=== PATIENT | female | born 1985 | race Caucasian/White ===

== ENCOUNTER 2018-06-12 12:21 | Emergency (ER) | payer OTHER ==
[2018-06-12 12:34] VITALS: BP 113/77
--- NOTE | 2018-06-12 13:45 | UC ---
Ear Complaint HPI - HPI Summary HPI Summary: 32 y/o female presents to the urgent care c/o Rt ear pressure and decrease hearing for the past 9 months. Pt reports she applied a silver of garlic about 9 months ago in her Rt ear. Since then she feels intermittent pressure. However for the past week she feels decrease hearing and a popping sound. seh is concern if some garlic still there. Pain is dull about 2/10. She has applied saline drops to alleviate symptoms w/o any improvement. Pt denies fever, dizziness, tinnitus, SOB, chest pain, abdominal pain, N/V/D. - History of Current Complaint Chief Complaint: UCEar Stated Complaint: EAR COMPLAINT Time Seen by Provider: 06/12/18 13:25 Hx Obtained From: Patient ?: Yes - 38 weeks Onset/Duration: Gradual Onset, Lasting Weeks - 9 months Severity Initially: Mild Severity Currently: Moderate Pain Intensity: 2 - ear pain pressure Pain Scale Used: 0-10 Numeric Aggravating Factors: Nothing Alleviating Factors: Nothing Associated Signs/Symptoms: Positive: Hearing Loss, Foreign Body Sensation - Allergies/Home Medications Allergies/Adverse Reactions: Allergies Allergy/AdvReac Type Severity Reaction Status Date / Time Sulfa (Sulfonamide Allergy Anaphylatic Verified 06/12/18 12:26 Antibiotics) Shock Home Medications: Home Medications Iron 18 mg PO DAILY 06/12/18 [History Confirmed 06/12/18] Vitamin TAB* 1 tab PO DAILY 06/12/18 [History Confirmed 06/12/18] PMH/Surg Hx/FS Hx/Imm Hx Previously Healthy: Yes Neurological History: Migraine - Surgical History Surgical History: None - Family History Known Family History: Positive: Hypertension, Diabetes Family History: Factor V laden - Social History Occupation: Employed Full-time Lives: With Family Alcohol Use: None Substance Use Type: None Smoking Status (MU): Never Smoked Tobacco Review of Systems Constitutional: Negative Skin: Negative Eyes: Negative ENT: Ear Ache - Rt ear pain and fullness w/ decrease hearing Respiratory: Negative Cardiovascular: Negative Gastrointestinal: Negative Genitourinary: Negative Motor: Negative Neurovascular: Negative Musculoskeletal: Negative Neurological: Negative Psychological: Negative Is Patient Immunocompromised?: No All Other Systems Reviewed And Are Negative: Yes Physical Exam - Summary Physical Exam Summary: Vital signs: reviewed General: well developed, well nourished female sitting in the examining table w/o any apparent distress Skin: [place], warm and dry, no evidence of atopic dermatitis, psoriasis, seborrhea. HEENT: -Head: atraumatic, non tender; no scalp dermatitis. -Eyes: sclera and conjunctiva clear, PERRLA, EOMI -Ears: no pre- or postauricular lymphadenopathy or erythema; RT external ear canal impacted w/ cerumen unable to visualize TM. LF external ear canal clear and LF TM WNL. TMs normal w/out bulging or retraction. Good light reflex. No fluid level, vesicles, or bullae. No perforation. -Nose/Face: erythematous and edematous nasal mucosa with clear rhinorrhea, no frontal or maxillary sinus tender to palpation. -Mouth/Throat: Mucous membrane moist, posterior pharynx clear, no erythema or exudates. Neck: supple, FROM, nontender, no lymphadenopathy, no meningismus. Chest: Clear to auscultation, normal breath sounds Abd: soft, Bowel sounds active, Nontender. Back: no spinal or CVAT Neuro: A&O x4, GCS 15, no focal neuro deficits, normal behavior for age. Triage Information Reviewed: Yes Vital Signs: Initial Vital Signs Temp 97 F 06/12/18 12:27 Pulse 77 06/12/18 12:27 Resp 18 06/12/18 12:27 BP 113/77 06/12/18 12:27 Pulse Ox 100 06/12/18 12:27 Ear Complaint Course/Dx - Course Course Of Treatment: 32 y/o female presents to the urgent care c/o Rt ear pressure and decrease hearing for the past 9 months. Pt reports she applied a silver of garlic about 9 months ago in her Rt ear. Since then she feels intermittent pressure. However for the past week she feels decrease hearing and a popping sound. seh is concern if some garlic still there. Pain is dull about 2 /10. She has applied saline drops to alleviate symptoms w/o any improvement. Pt denies fever, dizziness, tinnitus, SOB, chest pain, abdominal pain, N/V/D. Hx obtained. Pt w/ Rt cerumen impaction on examination. Rt ear irrigation ordered. Irrigation performed by Nurse Tinsley. Pt tolerated well procedure w/o any adverse effect. Rt external ear canl completely clear w/o any signs of infection after cerumen removal. Pt advised if not improvement of symptoms in 2- 3 days to return to the clinic or f/u w/ her PCP for further treatment. Pt understood and agreed w/ plan of care. - Differential Dx/Diagnosis Differential Diagnosis/HQI/PQRI: Cerumen Impaction, Otitis Externa, Otitis Media , Perforated TM Provider Diagnoses: 1- Rt ear cerumen impaction Discharge - Sign-Out/Discharge Documenting (check all that apply): Patient Departure - D/c home All imaging exams completed and their final reports reviewed: No Studies - Discharge Plan Condition: Stable Disposition: HOME Patient Education Materials: Cerumen Impaction (ED) Referrals: [facility] [Outside] - If Needed Additional Instructions: 1- Your Rt ear canal in completely clear and no signs of infection 2- If you develop ear pain please take Tylenol PO q6-8hrs prn to alleviate symptoms or return to the urgent care for further management - Billing Disposition and Condition Condition: STABLE Disposition: Home
== END 2018-06-12 14:32 | disposition home or self-care (01) ==
LOC: UCEAST 12:21
DX: O26.893 Other specified pregnancy related conditions, third trimester (principal); H61.21 Impacted cerumen, right ear; Z3A.38 38 weeks gestation of pregnancy; Z88.2 Allergy status to sulfonamides
CPT/HCPCS: 99212; G0463

== ENCOUNTER 2022-08-11 18:51 | Inpatient (IN) ==
[2022-08-11] MEDS ORDERED: Penicillin G Potassium IV 5,000,000 UNITS in NS 0.9% 100 ml BAG 100 ML IVPB ONE (21:02)
[2022-08-11] MEDS ORDERED: Buffered Lidocaine 1% SYRIN 1 ml INTRADERM ONE (21:02)
[2022-08-11] MEDS ORDERED: Promethazine INJ(RESTRICTED) 25 MG/ML 1 ml VIAL IV PRN (21:02)
[2022-08-11] MEDS ORDERED: Nalbuphine 10 MG/ML 1 ML VIAL IV PRN (21:02)
[2022-08-11 21:29] LABS: Hematocrit 37 % (35-47); Mean Corpuscular HGB Conc 33 g/dL (31-36); Mean Corpuscular Hemoglobin 30 pg (27-31); Mean Corpuscular Volume 92 fL (80-97); Mean Platelet Volume 9.2 fL (7.4-10.4); Platelet Count 233 10^3/uL (150-450); Red Blood Count 4.02 10^6 /uL (3.70-4.87); Red Cell Distribution Width 14 % (10-15); White Blood Count 12.3 10^3/uL (3.5-10.8)
[2022-08-11 21:48] LABS: ABS Basophils 0.1 10^3/ul (0-0.2); ABS Lymphocytes 2.1 10^3/ul (1.0-4.8); ABS Monocytes 0.7 10^3/ul (0-0.8); ABS Neutrophils 9.4 10^3/ul (1.5-7.7); Eosinophil % 0.1 %; Lymphocyte % 16.7 %; Nucleated Red Blood Cells % 0.1; Urine Benzodiazepine Screen None Detected (None Detect); Urine Cannabinoids Screen None Detected (None Detect); Urine Opiates Screen None Detected (None Detect)
[2022-08-11] MEDS ORDERED: Lidocaine 1% VIAL 10 MG/ML VIAL 30 ML ONE (22:36)
[2022-08-11] MEDS ORDERED: OBEPIDURAL (200 ML) 200 ML EPIDURAL ONE (22:36)
[2022-08-11] MEDS ORDERED: EPINEPHrine SULFITE FREE 1 MG/ML ONE (22:36)
[2022-08-11] MEDS: Lactated Ringers 1000 ml BAG 1,000 ML IV SCH ×2 (23:03→23:33)
[2022-08-11] MEDS ORDERED: Sodium Citrate/Citric Acid LIQ 15 ML UDC PO PRN (23:39)
[2022-08-11] MEDS ORDERED: Lactated Ringers 1000 ml BAG 1,000 ML IV ONE (23:39)
[2022-08-11] MEDS ORDERED: Phenylephrine 40 mcg/mL 10mL (400mcg) SYRINGE IV PUSH PRN ×2 (23:39)
[2022-08-11] MEDS ORDERED: Lactated Ringers 1000 ml BAG 500 ML IV PRN ×2 (23:39)
[2022-08-11] MEDS ORDERED: Lactated Ringers 1000 ml BAG 1,000 ML IV SCH (23:45)
[2022-08-11] MEDS ORDERED: OBEPIDURAL (200 ML) 200 ML EPIDURAL SCH (23:45)
[2022-08-12] MEDS: Penicillin G Potassium IV 3,000,000 UNITS in NS 0.9% 100 ml BAG 100 ML IVPB SCH ×5 (01:48→20:28)
[2022-08-12] MEDS: Lactated Ringers 1000 ml BAG 1,000 ML IV SCH ×2 (02:00→09:32)
[2022-08-12] MEDS ORDERED: Oxytocin in LR 0 MILLI.UNIT/0 ML BAG IV ONE (04:48)
[2022-08-12 07:01] LABS: Urine Appearance Cloudy; Urine Bilirubin Negative (Negative); Urine Blood 3+ (Negative); Urine Color Yellow; Urine Glucose Negative (Negative); Urine Ketones 1+ (Negative); Urine Nitrite Negative (Negative); Urine Protein 1+(30 mg/dL) (Negative); Urine Specific Gravity 1.013 (1.002-1.030); Urine Urobilinogen Negative (Negative)
[2022-08-12 07:07] LABS: Urine Bacteria 1+ (Absent); Urine Red Blood Cell 3+(>10/hpf) (Absent); Urine Squamous Epithelial Cell Present (Absent); Urine White Blood Cell 3+(>20/hpf) (Absent)
[2022-08-12] MEDS ORDERED: Dibucaine 1% OINT 28.35 GM TUBE PR PRN (14:46)
[2022-08-12] MEDS ORDERED: Glycerin ADULT 2.4 gm SUPP PR PRN (14:46)
[2022-08-12] MEDS ORDERED: Witch Hazel PAD JAR TOPICAL PRN (14:46)
[2022-08-12] MEDS ORDERED: Oxytocin 10 UNITS/ML 1 ML VIAL IM ONE (14:46)
[2022-08-12] MEDS ORDERED: Lactated Ringers 1000 ml BAG 1,000 ML IV SCH (15:00)
[2022-08-13 07:36] LABS: Hematocrit 29 % (35-47); Hemoglobin 9.4 g/dL (12.0-16.0); Mean Corpuscular HGB Conc 33 g/dL (31-36); Mean Corpuscular Hemoglobin 31 pg (27-31); Mean Corpuscular Volume 93 fL (80-97); Mean Platelet Volume 8.9 fL (7.4-10.4); Platelet Count 180 10^3/uL (150-450); Red Blood Count 3.06 10^6 /uL (3.70-4.87); Red Cell Distribution Width 14 % (10-15); White Blood Count 13.2 10^3/uL (3.5-10.8)
[2022-08-13 08:37] LABS: ABS Eosinophils 0.1 10^3/ul (0-0.6); ABS Lymphocytes 1.9 10^3/ul (1.0-4.8); ABS Monocytes 0.7 10^3/ul (0-0.8); ABS Neutrophils 10.5 10^3/ul (1.5-7.7); Eosinophil % 0.4 %; Lymphocyte % 14.2 %
[2022-08-13] MEDS ORDERED: Influenza vaccine *QUAD* *2022-23* 0.5 ML SYRINGE IM ONE (09:00)
[2022-08-14 07:49] VITALS: BP 99/61
== END 2022-08-14 11:59 | disposition home or self-care (01) | DRG 560 ==
LOC: MCHOBOUT 18:51 → MCHOB 21:03
PROVIDERS: ADMIT Obstetrics & Gynecology; ATTEND Obstetrics & Gynecology